=== PATIENT | female | born 1995 | race African-American/Black ===

== ENCOUNTER 2017-05-20 12:09 | Emergency (ER) | payer MEDICAID, OTHER ==
[~2017-05-20] VITALS: Ht 160 cm; Wt 60.0 kg
[2017-05-20 12:14] VITALS: BP 116/74
== END 2017-05-20 17:38 | disposition left against medical advice (07) ==
LOC: ER 12:22
DX: R42 Dizziness and giddiness (principal); Z53.21 Procedure and treatment not carried out due to patient leaving prior to being seen by health care provider